=== PATIENT | male | born 1990 | race Caucasian/White ===

== ENCOUNTER 2017-04-21 11:31 | Emergency (ER) | payer SELFPAY ==
--- NOTE | 2017-04-21 13:24 | ED Physician Documentation ---
History of Present Illness - Stated complaint Stated Complaint: RASH ALL OVER/ABD PX - Chief complaint Chief Complaint: General - Additonal information Additional information: hx from pt 27 y.o old healthy male was in good health until last week when he and the rest of his family developed stomach flu sx (fever to 102 NVD) those sx have subsided and rest of family is better but he still has lower abd pain and scrotal pain and now a rash which started on his palms and then spread to his body face feet and even in his mouth no travel no bad food no new meds such as antibiotics no exposure to ticks - no camping hiking etc no travel feels itchy still having low grade fever and low abd / pain Review of Systems Constitutional: reports: Fever Throat: reports: Oral lesions / sores Respiratory: denies: Cough GI: reports: Abdominal Pain (low), Nausea, Vomiting, Diarrhea : reports: Testicular pain Skin: reports: Rash Endocrine: denies: Easy bruising / bleeding Immunocompromised: denies: Immunocompromised PD PAST MEDICAL HISTORY - Past Medical History Past Medical History: No - Past Surgical History Past Surgical History: No - Present Medications Home Medications: Ambulatory Orders Medication Instructions Recorded Confirmed No Known Home Medications [No 04/21/17 04/21/17 Known Home Medications] - Allergies Allergies/Adverse Reactions: Allergies Allergy/AdvReac Type Severity Reaction Status Date / Time No Known Drug Allergies Allergy Verified 04/21/17 11:46 - Social History Does the pt smoke?: No Smoking Status: Never smoker Does the pt drink ETOH?: Yes Does the pt have substance abuse?: No - Immunizations Immunizations are current?: Yes PD ED PE NORMAL - Vitals Vital signs reviewed: Yes - HEENT HEENT: Other (oral lesions to buccal membranes and tongue, not to palate) - Neck Neck: Supple, no meningeal sign - Cardiac Cardiac: RRR - Respiratory Respiratory: No respiratory distress, Clear bilaterally - Abdomen Abdomen: Soft, Other (mild lower abd TTP s perioneal signs, motly suprapubic, no focal RLQ TTP to suggest tricia at this time) - Male Male : Other (testes desc isha, R testicle biut swollen and tender, nl lie, no hermia, no dc) - Derm Derm: Other (purpuric rash to body , predom to hand both palmar and dorsal, and to plantar R foot, non palp on hands and feet, small and palpable on torso, several small lesions in mouth - tongue and cheeks not palate) - Extremities Extremities: No deformity - Neuro Neuro: Alert and oriented X 3 Results - Vitals Vitals: Vital Signs - 24 hr 04/21/17 04/21/17 11:42 14:38 Temperature 36.6 C 36.5 C Heart Rate 98 98 Respiratory 16 16 Rate Blood Pressure 130/91 H 113/53 L O2 Saturation 100 98 Oxygen O2 Source Room air - Labs Labs: Laboratory Tests 04/21/17 04/21/17 04/21/17 13:15 13:15 13:15 WBC 16.2 H RBC 5.71 Hgb 15.7 Hct 46.0 MCV 80.5 MCH 27.6 MCHC 34.3 RDW 12.9 Plt Count 237 MPV 9.2 Neut # 13.4 H Lymph # 1.5 [place] # 1.2 H Eos # 0.0 Baso # 0.1 Absolute Nucleated RBC 0.01 Nucleated RBC % 0.1 PT 15.7 H INR 1.4 H APTT 31.4 Sodium 136 Potassium 4.1 Chloride 95 L Carbon Dioxide 28 Anion Gap 13.0 BUN 12 Creatinine 1.1 Estimated GFR (MDRD) 80 L Glucose 96 Lactic Acid Calcium 9.3 Total Bilirubin 0.9 AST 24 ALT 21 Alkaline Phosphatase 55 Total Protein 8.9 H Albumin 4.4 Globulin 4.5 H Albumin/Globulin Ratio 1.0 Lipase 17 L Urine Color Urine Clarity Urine pH Ur Specific [place] Urine Protein Urine Glucose (UA) Urine Ketones Urine Occult Blood Urine Nitrite Urine Bilirubin Urine Urobilinogen Ur Leukocyte Esterase Ur Microscopic Review Urine Culture Comments 04/21/17 04/21/17 13:38 13:42 WBC RBC Hgb Hct MCV MCH MCHC RDW Plt Count MPV Neut # Lymph # [place] # Eos # Baso # Absolute Nucleated RBC Nucleated RBC % PT INR APTT Sodium Potassium Chloride Carbon Dioxide Anion Gap BUN Creatinine Estimated GFR (MDRD) Glucose Lactic Acid 0.8 Calcium Total Bilirubin AST ALT Alkaline Phosphatase Total Protein Albumin Globulin Albumin/Globulin Ratio Lipase Urine Color YELLOW Urine Clarity CLEAR Urine pH 7.5 Ur Specific [place] 1.015 Urine Protein NEGATIVE Urine Glucose (UA) NEGATIVE Urine Ketones NEGATIVE Urine Occult Blood NEGATIVE Urine Nitrite NEGATIVE Urine Bilirubin NEGATIVE Urine Urobilinogen 1 (NORMAL) Ur Leukocyte Esterase NEGATIVE Ur Microscopic Review NOT INDICATED Urine Culture Comments NOT INDICATED - Rads (name of study) ANGELLA carvajal Radiology: See rad report (+ increased flow to R testicle and epididymis c/w epididimorchitis, no torsion, trace hydrocele) PD MEDICAL DECISION MAKING - ED course ED course: hx and exam most c/w HSP but that would be unusual past age 20 or so labs notable for elev WBC, no anemia, nl plt, slightly elev INR, nl lactate, nl renal fxn called [facility] and they can see pt today down the street to provide input and then call me with any further recommendations derm called back 5PM- they feel lesions more on palms and less on lower ext than typical for HSP, are doing biopsies, suggest also could be mono or secondary syphilis, plan to put pt on keflex (for face where lesions have developed secondary infection), prednisone burst taper, continue bactroban - keflex would also reasonable well cover orchitis - added on STD GC chlamydia to urine sample as well, derm will see pt in follow up Wed an I will be working that day as well so can coordinate getting labs results to specialist and pt Departure - Departure Disposition: 01 Home, Self Care Clinical Impression: Rash Condition: Good Follow-Up: [facility] [Provider Group] Comments: Your symptoms and rash suggest that you possible have a disease process called HSP (Henoch-Schonlein purpura) but that is unusual in adults. I spoke to the dermatology office and they can see you today to provide specialty insight into this rash and then we will work together to get your treated from there. Please go to the dermatology office now - it is just down the street here in [place] at [address] - have them call me in the ER at after they see you. Please take a copy of your labs with you Discharge Date/Time: 04/21/17 15:05
[2017-04-21] MEDS ORDERED: SODIUM CHLORIDE 0.9% 1,000 ML IV ONE (13:28)
[2017-04-21 13:30] LABS: BASOPHILS # (AUTO) 0.1 10^3/uL (0.0-0.1); BASOPHILS % (AUTO) 0.8 %; EOSINOPHILS % (AUTO) 0.2 %; HGB - HEMOGLOBIN 15.7 g/dL (14.0-18.0); LYMPHOCYTES # (AUTO) 1.5 10^3/uL (1.5-3.5); MEAN CORPUSCULAR HEMOGLOBIN 27.6 pg (27.0-31.0); MEAN CORPUSCULAR HGB CONC 34.3 g/dL (32.0-36.0); MEAN CORPUSCULAR VOLUME 80.5 fL (80.0-94.0); MEAN PLATELET VOLUME 9.2 fL (7.4-11.4); MONOCYTES # (AUTO) 1.2 10^3/uL (0.0-1.0); MONOCYTES % (AUTO) 7.3 %; NEUTROPHILS # (AUTO) 13.4 10^3/uL (1.5-6.6); NEUTROPHILS % (AUTO) 82.7 %; PLT - PLATELET COUNT 237 10^3/uL (130-450); RED BLOOD COUNT 5.71 10^6/uL (4.70-6.10); RED CELL DISTRIBUTION WIDTH 12.9 % (12.0-15.0); WHITE BLOOD COUNT 16.2 x10^3/uL (4.8-10.8)
[2017-04-21 13:39] LABS: INR 1.4 (0.8-1.2); PT - PROTHROMBIN TIME 15.7 secs (9.9-12.6)
[2017-04-21 13:43] LABS: ALBUMIN 4.4 g/dL (3.2-5.5); BILIRUBIN,TOTAL 0.9 mg/dL (0.2-1.0); CALCIUM 9.3 mg/dL (8.5-10.3); CREATININE 1.1 mg/dL (0.6-1.2); TOTAL PROTEIN 8.9 g/dL (6.7-8.2)
[2017-04-21 13:55] LABS: BILIRUBIN,URINE NEGATIVE (NEGATIVE); GLUCOSE, URINE (UA) NEGATIVE (NEGATIVE); KETONES,URINE (UA) NEGATIVE (NEGATIVE); LEUKOCYTE ESTERASE, URINE NEGATIVE (NEGATIVE); NITRITE,URINE NEGATIVE (NEGATIVE); OCCULT BLOOD,URINE NEGATIVE (NEGATIVE); PH,URINE 7.5 PH (5.0-7.5); PROTEIN,URINE NEGATIVE (NEGATIVE); UROBILINOGEN,URINE 1 (NORMAL) E.U./dL (NORMAL)
[2017-04-21 13:56] LABS: CLARITY,URINE CLEAR (CLEAR)
[2017-04-21 14:42] VITALS: BP 113/53
--- NOTE | 2017-04-21 15:31 | Ultrasound Report ---
SCROTAL DUPLEX: 04/21/2017 CLINICAL INDICATION: Right testicle swollen and painful. TECHNIQUE: Real-time sonographic vascular imaging was performed by the channel lip wetter through the scrotum utilizing both color-flow and Doppler spectral analysis. Multiple chemical sales representative static images were saved for review. FINDINGS: The right testicle measures 5.4 x 3.4 x 2.6 cm. It demonstrates diffuse increase in blood flow. No focal testicular lesion is seen. Trace hydrocele is present. Right epididymis is also hyperemic. The left testicle measures 5.5 x 3.3 x 2.3 cm. It demonstrates normal flow and echotexture. Trace hydrocele is present. The left epididymis is unremarkable. IMPRESSION: INCREASED FLOW TO THE RIGHT TESTICLE AND EPIDIDYMIS, COMPATIBLE WITH EPIDIDYMAL ORCHITIS. NO EVIDENCE OF TORSION AT THIS TIME. TRACE HYDROCELES. TD: 04/21/2017 15:30
== END 2017-04-21 15:05 | disposition home or self-care (01) ==
LOC: ED 11:31
DX: R21 Rash and other nonspecific skin eruption (principal); R10.31 Right lower quadrant pain; N50.82 Scrotal pain; K13.70 Unspecified lesions of oral mucosa
CPT/HCPCS: 36415; 76870; 80053; 80074; 81001; 81003; 83605; 83690; 85025; 85610; 85730; 86308; 86780; 87040; 87086; 87491; 87591; 93975; 96360; 99283; 99284